=== PATIENT | female | born 1930 | race Two or more races ===

== ENCOUNTER 2021-01-15 14:30 | Outpatient (CLI) | payer MEDICARE, OTHER ==
[2021-01-15] MEDS ORDERED: UREA 10% -AHA 4% CREAM 57 GM TUBE ONE (15:25)
== END 2021-01-15 23:59 | disposition home or self-care (01) ==
LOC: WOU 14:30
PROVIDERS: ATTEND Podiatrist Foot & Ankle Surgery
DX: L60.2 Onychogryphosis (principal); B35.1 Tinea unguium; M20.42 Other hammer toe(s) (acquired), left foot; M20.41 Other hammer toe(s) (acquired), right foot; M79.675 Pain in left toe(s); M79.674 Pain in right toe(s); Z79.82 Long term (current) use of aspirin; E11.9 Type 2 diabetes mellitus without complications; Z79.84 Long term (current) use of oral hypoglycemic drugs
CPT/HCPCS: G0463